=== PATIENT | male | born 1995 | race Caucasian/White ===

== ENCOUNTER → 2021-04-09 16:39 | Outpatient (CLI) | payer BC, SELFPAY ==
--- NOTE | ~2021-04-09 | XR_ITS ---
XR lumbar spine 2-3V DATE: 04/09/2021 17:23 INDICATION: Back pain TECHNIQUE: Standing AP, lateral, coned lateral lumbosacral views COMPARISON: None FINDINGS: There is levoscoliosis of the thoracolumbar spine. No fracture or bone destruction or spondylolisthesis. The included lower thoracic and lumbar pedicles are intact. Lumbar and lumbosacral interspaces appear well preserved. The sacroiliac joints are norm al. IMPRESSION: Levoscoliosis Reviewed, dictated and finalized at location A. IMPRESSION: Levoscoliosis
--- NOTE | ~2021-04-09 | XR_ITS ---
XR thoracic spine 2V DATE: 04/09/2021 17:23 INDICATION: Back pain TECHNIQUE: Standing AP, lateral and swimmer views COMPARISON: None FINDINGS: Mild dextro scoliosis of the thoracic spine. No fracture or dislocation or bone destruction is detected. The pedicles are intact. No paraspinal so ft tissue thickening. IMPRESSION: Mild dextro scoliosis Reviewed, dictated and finalized at location A. IMPRESSION: Mild dextro scoliosis
== END ==
PROVIDERS: PCP Family Medicine; Visit Provider Physician Assistant
DX: I10 Essential (primary) hypertension (principal); M41.86 Other forms of scoliosis, lumbar region
CPT/HCPCS: 72070; 72100

== ENCOUNTER → 2021-04-29 14:03 | Outpatient (CLI) | payer BC, SELFPAY ==
--- NOTE | ~2021-04-29 | MR_ITS ---
EXAMINATION: MR thoracic spine wo con DATE: 04/29/2021 14:41 INDICATION: Dorsalgia, unspecified. TECHNIQUE: Magnetic resonance imaging (MRI) of the thoracic spine was performed without intravenous c ontrast. Sagittal localizer T1-weighted FSE of the cervical spine was obtained. Thoracic spine sequen maria isabel included sagittal T2-weighted FSE, sagittal T1-weighted FSE, sagittal STIR FSE, and axial T2-weig hted FSE. COMPARISON: Thoracic spine MRI 11/20/2017, radiographs 04/09/2021 FINDINGS: There is 4 degrees dextrocurvature of thoracic spine. Vertebral body heights and interverte bral disc heights are normal. There is multilevel mild facet joint osteoarthritis. At T10-T11, there is mild left neural foraminal stenosis. The spinal cord signal intensity is normal. The conus medulla ris is at L1-L2. IMPRESSION: 1. Mild thoracic spondylosis. Reviewed, dictated and finalized at location A.
== END ==
PROVIDERS: PCP Family Medicine; Visit Provider Physician Assistant
DX: M54.9 Dorsalgia, unspecified (principal); M47.814 Spondylosis without myelopathy or radiculopathy, thoracic region
CPT/HCPCS: 72146

== ENCOUNTER → 2022-12-17 15:21 | Outpatient (CLI) | payer BC, SELFPAY ==
--- NOTE | ~2022-12-17 | US_ITS ---
US scrotum doppler INDICATION: Right testicular pain TECHNIQUE: Testicular sonogram utilizing grayscale and color Doppler FINDINGS: The testes are normal in size and appearance. No focal lesions are seen. The right testes measures 4.7 x 2.1 x 3.8 cm centimeters, and the left testis measures 4.7 x 2.3 x 3 cm cm. There is n ormal vascular flow to both testes. There is a 3 mm left epididymal cyst. There are small bilateral hydroceles. There are bilateral varicoceles. IMPRESSION: 1. Small bilateral hydroceles. 2: Bilateral varicoceles. Reviewed, dictated and finalized at location B.
== END ==
PROVIDERS: PCP Family Medicine; Visit Provider Nurse Practitioner Family
DX: N43.3 Hydrocele, unspecified (principal); I86.1 Scrotal varices; N50.811 Right testicular pain
CPT/HCPCS: 76870; 93976

== ENCOUNTER 2023-01-01 11:20 | Outpatient (CLI) | payer BC, SELFPAY ==
[2023-01-01 12:37] LABS: Basophils Percent Auto 0.4 % (0.2-1.2); Eosinophils Absolute Auto 0.1 K/mm3 (0-0.3); Eosinophils Percent Auto 1.1 % (0-4.4); Hematocrit 45.8 % (42.0-52.0); Hemoglobin 15.5 g/dL (14.0-18.0); Immature Granulocyte Absolute 0.03 K/mm3 (0.00-0.031); Immature Granulocyte Percent A 0.4 % (0-0.5); Lymphocytes Absolute Auto 2.02 K/mm3 (0.9-3.2); Lymphocytes Percent Auto 25.7 % (18.3-44.2); Mean Corpuscular HGB Conc 33.8 g/dl (32-36); Mean Corpuscular Hemoglobin 29.2 pg (26-34); Mean Corpuscular Volume 86.3 fl (80-100); Mean Platelet Volume 10.1 fl (7.4-10.4); Monocytes Absolute Auto 0.6 K/mm3 (0.1-0.6); Neutrophils Absolute Auto 5.1 K/mm3 (1.3-6.7); Neutrophils Percent Auto 64.4 % (45.5-73.1); Platelet Count Result 243 k/mm3 (150-375); Red Blood Count 5.31 M/mm3 (4.6-6.20); Red Cell Distribution Width 12.1 % (11.5-14.5); White Blood Count 7.9 K/mm3 (4.5-10.0)
[2023-01-01 12:45] LABS: Anion Gap 9 mmol/L (8-16); Blood Urea Nitrogen 15 mg/dL (9-20); Calcium 9.5 mg/dL (8.4-10.2); Carbon Dioxide 30 mmol/L (22-30); Chloride 101 mmol/L (98-107); Cholesterol 205 mg/dL (0-200); Estimated Glomerular Filt Rate > 60; Glucose 99 mg/dL (65-110); HDL Direct 34 mg/dL; Potassium 4.5 mmol/L (3.4-5.0); Sodium 140 mmol/L (137-145); Triglycerides 149 mg/dL (<150)
[2023-01-01 12:58] LABS: LDL Cholesterol Direct 133 mg/dL
== END 2023-01-01 11:21 | disposition home or self-care (01) ==
LOC: ANHGOSHLAB 11:21
PROVIDERS: PCP Family Medicine; Visit Provider Nurse Practitioner Family
DX: I10 Essential (primary) hypertension (principal)
CPT/HCPCS: 36415; 80048; 80061; 84443; 85025

== ENCOUNTER 2025-01-23 19:05 | Emergency (ER) | payer OTHER, SELFPAY ==
--- NOTE | 2025-01-23 19:07 | ED_ITS ---
HPI - Eye Problem General Chief complaint: Eye Problems Stated complaint: Eye Irritation Source: patient and RN notes reviewed Mode of arrival: ambulatory Limitations: no limitations History of Present Illness HPI Narrative: Patient is a 29-year-old male who presents to the [facility] with complaints possible foreign body in the left eye. Patient states that he was working on his car on Thursday and believes he may have gotten a small piece of metal in the eye. He denies eye pain at this time. There is no injection of the eye. There is no drainage. He denies any visual disturbance. Related Data Allergies Allergy/AdvReac Type Severity Reaction Status Date / Time No Known Allergies Allergy Verified 01/23/25 19:17 Review of Systems Review of Systems: CONSTITUTIONAL: Denies fever, chills, or sweats. EYES: Reports foreign body sensation in left eye. ENT: Denies otalgia and sore throat CARDIOVASCULAR: Denies chest pain, palpitations, or edema. RESPIRATORY: Denies cough or dyspnea. GASTROINTESTINAL: Denies abdominal pain, nausea, vomiting, or diarrhea. GENITOURINARY: Denies dysuria or hematuria. SKIN: Denies rash or itching. MUSCULOSKELETAL: Denies back pain, joint pain, or myalgia. NEUROLOGIC: Denies headache, numbness, or weakness. Pertinent positives per HPI. [facility] Past Medical History Medical History Tendonitis of shoulder, right Allergic contact dermatitis due to plants, except food Social History Social History Smoking status: Current every day smoker (vaping with nicotine ) Tobacco type: e-cigarettes/vaping Alcohol intake: current Substance use: never Substance use type: does not use Do You Feel Safe in your Home?: No Lack of Transportation: No Lack of Food: Never True Current Housing: I Have Housing Concerned About Future Housing: No Difficulty Paying Gas/Electric Bills: No Difficulty Paying for Meds: No Education: Associate Degree Difficulty w/ Childcare or Family Care: No Living arrangements: with family Occupation/Education: occupation 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 There is no relevant family history pertinent to the patient complaint. Exam Narrative: GENERAL: This is a well-nourished, well-developed patient, in no apparent distress. HEAD: normocephalic, atraumatic. EYES: Sclera clear/white. Vision is grossly intact. EARS: External ears normal. Hearing grossly intact. NOSE: External nose normal with no obvious nasal discharge, nares without redness, no rhinorrhea. THROAT: Mucous membranes moist. NECK: Neck supple, non-tender without lymphadenopathy, masses or thyromegaly. CARDIOVASCULAR: Regular rate and rhythm without murmurs, gallops, or rubs. RESPIRATORY: Clear to auscultation. Breath sounds equal bilaterally. GASTROINTESTINAL: Abdomen soft. No guarding. SKIN: warm, intact with no suspicious lesions or rash, good texture and turgor. NEURO: awake, alert, and oriented to person, place and time. There were no obvious focal neurologic abnormalities. Course Course Level of Care: Express Care Visit Vital Signs Vital signs: Vital Signs Temperature 98.6 F 01/23/25 19:10 Pulse Rate 84 01/23/25 19:10 Respiratory Rate 16 01/23/25 19:10 Blood Pressure 146/83 H 01/23/25 19:10 Pulse Oximetry 100 01/23/25 19:10 Oxygen Delivery Room Air 01/23/25 19:10 Temperature 98.6 F 01/23/25 19:10 Pulse Rate 84 01/23/25 19:10 Respiratory Rate 16 01/23/25 19:10 Blood Pressure 146/83 H 01/23/25 19:10 Pulse Oximetry 100 01/23/25 19:10 Oxygen Delivery Room Air 01/23/25 19:10 Reviewed Procedures Other Procedure Procedure 1: Other Procedure: Topical anesthetic was instilled with good anesthesia using 1gtt of opth anesthetic agent (tetracaine). Fluorescein stain of the L eye was performed. Minute foreign body removed with <0.1cm corneal abrasion noted to the left. Upper lid was everted and no lesions were noted. Patient tolerated the procedure well, no adverse reaction or complications. MDM - Eye Problem MDM Narrative Medical decision making narrative: Eye drops as prescribed. -Do this for 3 to 4 days until all redness and discharge has disappeared. -Cold compresses to the affected eye for comfort -May need warm compresses to remove debris in the morning -When cleaning the eyes used a washcloth/cotton ball in one direction then change washcloths/cotton ball before using it on another eye. -Do not share medicine--do not touch the eye with the medicine -Alternate or take Tylenol or ibuprofen as directed in the bottle for pain -Avoid screen time--television, computer, tablet or phone. Follow-up with marketing copywriter tomorrow for slit lamp exam. Differential Diagnosis Differential diagnosis: Likely corneal abrasion, conjunctivitis and hyphema Critical Care Time Critical Care Time Critical Care Time: No Discharge Plan Discharge Clinical Impression: Abrasion of left cornea Qualifiers: Encounter type: initial encounter Qualified Code(s): S05.02XA - Injury of conjunctiva and corneal abrasion without foreign body, left eye, initial encounter Patient Disposition: Home Condition: Stable Instructions: Corneal Abrasion (ED) Additional Instructions: Eye drops as prescribed. -Do this for 3 to 4 days until all redness and discharge has disappeared. -Cold compresses to the affected eye for comfort -May need warm compresses to remove debris in the morning -When cleaning the eyes used a washcloth/cotton ball in one direction then change washcloths/cotton ball before using it on another eye. -Do not share medicine--do not touch the eye with the medicine -Alternate or take Tylenol or ibuprofen as directed in the bottle for pain -Avoid screen time--television, computer, tablet or phone. Follow-up with marketing copywriter tomorrow for slit lamp exam. Patient Language: Bruneian Prescriptions: New erythromycin 5 mg/gram (0.5 %) ointment 1 applic LEFT EYE DAILY 7 Days Qty: 3.5 0RF No Action lisinopril 5 mg tablet 5 mg PO DAILY Qty: 90 3RF Follow-up/Referrals: PHYSICIAN,CARBIDE GRINDER [Primary Care Provider] - Time of Disposition: 19:39
[2025-01-23 19:10] VITALS: BP 146/83; PULSE 84; RESP 16; TEMP 37; O2SAT 100
[2025-01-23] MEDS: TETRACAINE HCL 0.5% OPHTH SOLN 4 ML BTL LEFT EYE (19:29)
[2025-01-23] MEDS: FLUORESCEIN SOD 1 MG/STRIP LEFT EYE (19:31)
== END 2025-01-23 19:41 | disposition home or self-care (01) ==
PROVIDERS: Emergency Provider Nurse Practitioner
DX: S05.02XA Injury of conjunctiva and corneal abrasion without foreign body, left eye, initial encounter (principal); F17.290 Nicotine dependence, other tobacco product, uncomplicated; W22.8XXA Striking against or struck by other objects, initial encounter
CPT/HCPCS: 99213; G0463